=== PATIENT | male | born 1945 | race Caucasian/White ===

== ENCOUNTER 2016-03-28 10:21 | Emergency (ER) | payer MEDICARE, BC ==
[2016-03-28 12:49] VITALS: BP 111/58
--- NOTE | 2016-03-28 12:51 | UC ---
Respiratory Complaint HPI - HPI Summary HPI Summary: productive cough for 4d, greyish phlegm. No fever. No vomiting or diarrhea. Mild malaise and body aches. No ST or earache. No sinus congestion. Diabetic. Ill contacts, stomach flu. - History of Current Complaint Chief Complaint: UCRespiratory Stated Complaint: COUGH/CARDONA Time Seen by Provider: 03/28/16 11:49 Hx Obtained From: Patient Onset/Duration: Gradual Onset, Lasting Days - 4 Timing: Constant Severity Initially: Mild Severity Currently: Mild Character: Sputum Description: - gama, scant Aggravating Factors: Exertion Alleviating Factors: Nothing Associated Signs And Symptoms: Positive: URI, Hoarseness. Negative: Wheezing - Risk Factors Pulmonary Embolism Risk Factors: Negative Cardiac Risk Factors: Diabetes Pseudomonas Risk Factors: Negative Tuberculosis Risk Factors: Diabetes - Allergies/Home Medications Allergies/Adverse Reactions: Allergies Allergy/AdvReac Type Severity Reaction Status Date / Time Nabumetone [From Relafen] Allergy Swelling Verified 03/28/16 12:24 Of Face,Lips,& Throat Home Medications: Home Medications Insulin GLARGINE(*) [Lantus(*)] 30 units SUBCUT BID 03/28/16 [History Confirmed 03/28/16] Primidone TAB(*) [Mysoline TAB(*)] 150 mg PO BEDTIME 03/28/16 [History Confirmed 03/28/16] Travoprost Z 0.004% OPHTH (NF) [Travatan Z 0.004% OPTH (NF)] 1 drop BOTH EYES BEDTIME 03/28/16 [History Confirmed 03/28/16] PMH/Surg Hx/FS Hx/Imm Hx Endocrine History Of: Reports: Diabetes - type 2, Thyroid Disease - hypo Cardiovascular History Of: Reports: Cardiac Disorders - a fib, a flutter resolved by ablatiion, Hypertension GI/ History Of: Reports: Ulcer - gastric - Surgical History Surgical History: Yes Surgery Procedure, Year, and Place: cardiac ablations x 2 about 2 yrs ago - Family History Known Family History: Positive: Hypertension - Social History Occupation: Retired Lives: With Family Alcohol Use: Rare Substance Use Type: None Smoking Status (MU): Never Smoked Tobacco - Immunization History Most Recent Influenza Vaccination: 2016 Review of Systems Constitutional: Fatigue Skin: Negative Eyes: Negative ENT: Sore Throat - mild Respiratory: Cough Cardiovascular: Negative Gastrointestinal: Negative Genitourinary: Negative Motor: Negative Neurovascular: Negative Musculoskeletal: Negative Neurological: Negative Psychological: Negative All Other Systems Reviewed And Are Negative: Yes Physical Exam Triage Information Reviewed: Yes Appearance: Well-Appearing, No Pain Distress, Well-Nourished Vital Signs: Initial Vital Signs Temp 98.6 F 03/28/16 12:29 Pulse 58 03/28/16 12:29 Resp 20 03/28/16 12:29 BP 111/58 03/28/16 12:29 Pulse Ox 97 03/28/16 12:29 Vital Signs Reviewed: Yes Eye Exam: Normal ENT: Positive: Hearing grossly normal, Pharynx normal, TMs normal, Muffled/ hoarse voice - hoarse Neck exam: Normal Neck: Positive: Supple Respiratory Exam: Normal Respiratory: Positive: Lungs clear, Normal breath sounds, No respiratory distress, No accessory muscle use - harsh, phlegmy cough Cardiovascular Exam: Normal Musculoskeletal Exam: Normal Neurological Exam: Normal Psychological Exam: Normal Skin Exam: Normal UC Diagnostic Evaluation - Laboratory O2 Sat by Pulse Oximetry: 97 Respiratory Course/Dx - Differential Dx/Diagnosis Differential Diagnosis/HQI/PQRI: Bronchitis, Lower Resp Infection Provider Diagnoses: URI Discharge - Discharge Plan Condition: Stable Disposition: HOME Prescriptions: Azithromycin TAB* [Zithromax TAB (Z-HEATHER) 250 mg #6 tabs] 2 tab PO .TODAY, THEN 1 DAILY #1 heather Guaifenesin-Codeine [Cheratussin AC] 1 - 2 teasp PO Q6HR PRN #120 ml MDD 30ml PRN Reason: Cough Patient Education Materials: Upper Respiratory Infection (ED) Referrals: Mitch Prince MD [Primary Care Provider] - Additional Instructions: If your symptoms are worsening, particularly if you run a fever over 100.5 and have a worsening cough, then fill the antibiotic. Otherwise, treat as needed with cough suppressant and over the counter cold medications
== END 2016-03-28 12:52 | disposition home or self-care (01) ==
LOC: UCCORT 10:21
DX: J06.9 Acute upper respiratory infection, unspecified (principal); E11.9 Type 2 diabetes mellitus without complications; Z79.4 Long term (current) use of insulin; I48.91 Unspecified atrial fibrillation
CPT/HCPCS: 99212; G0463

== ENCOUNTER 2019-03-07 07:04 | Day surgery (SDC) | payer MEDICARE, BC ==
[~2019-03-07 07:04] MED LIST: Buffered Lidocaine 1% SYRIN* 1 ML/SYRINGE INTRADERM ONE
[2019-03-07] MEDS ORDERED: fentaNYL* 50 MCG/ML 2 ML VIAL (100 MCG VIAL) ONE (08:15)
[2019-03-07] MEDS ORDERED: Midazolam* 1 MG/ML 2 ML VIAL (2 MG) ONE (08:15)
[2019-03-07] MEDS ORDERED: Insulin LISPRO* 1 UNITS UNIT SUBCUT ONE (08:19)
[2019-03-07] MEDS ORDERED: Neomycin/Polymy/Dex OPTH.SUSP* MAXITROL 0.1% 5 ML ONE (08:53)
[2019-03-07] MEDS ORDERED: Ketorolac 0.5% OPHTH (NF) 0.5 % 5 ML BTL ONE (08:53)
[2019-03-07] MEDS ORDERED: Povidone Iodine 5% OPTH* 30 ML BTL ONE (08:53)
[2019-03-07] MEDS ORDERED: Phenylephrine OPHTH SOL 2.5%* 2 ML ONE (08:53)
[2019-03-07] MEDS ORDERED: Lidocaine 2% w/ EPI 1:200,000* 20 ML SDV VIAL ONE (08:53)
[2019-03-07] MEDS ORDERED: acetaZOLAMIDE TAB* 250 MG ONE (08:53)
[2019-03-07] MEDS ORDERED: Proparacaine 0.5% OPHTH.SOL* 15 ML BTL ONE (08:53)
[2019-03-07] MEDS ORDERED: Cyclopentolate 1% OPTH.SOL* 2 ML BTL ONE (08:53)
[2019-03-07] MEDS ORDERED: Lidocaine 1% MPF ** 5 ML VIAL ONE (08:53)
[2019-03-07 09:49] VITALS: BP 102/72
--- NOTE | 2019-03-07 11:55 | OP ---
OPERATIVE NOTE: DATE OF OPERATION: 03/07/19 DATE OF : [birth year] SURGEON: Clem Nunez MD PREOPERATIVE DIAGNOSES: Cataract and glaucoma, left eye. POSTOPERATIVE DIAGNOSIS: Cataract and glaucoma, left eye. OPERATIVE PROCEDURE: Extracapsular cataract extraction with intraocular lens implant and iStent, lef t eye. DESCRIPTION OF PROCEDURE: The patient was brought to the operating room after being given 1/2% Alcai ne with epinephrine drops in the preoperative area. The eye was prepped and draped in the usual ster ile fashion. Sterile drape and eyelid speculum were placed. Again, topical 1/2% Alcaine with epinep hrine was given. A paracentesis incision was made at the 3 o'clock position with the No.75 blade. Cl ear cornea incision 2.2 x 2.2-mm was created at the 6 o'clock position starting at the anterior limbu s using the 2.2-mm keratome. The anterior chamber was irrigated with 0.4 mL of 1% non-preservative i ntracameral lidocaine and filled with DisCoVisc. A capsulorrhexis was completed using the cystotome and the Utrata forceps. Hydrodissection was performed with balanced salt solution. The lens nucleus was removed with the Phacoemulsification handpiece without incident. Cortex was removed with the irr igation-aspiration handpiece. The capsular bag was re-inflated using DisCoVisc and an [id number] 20 impl ant was inserted with the shooter followed by an iStent inject inserted with the shooter at the 8 o'c lock and 10 o'clock position. The irrigation-aspiration handpiece was used to remove all residual Di sCoVisc. The eye was refilled with balanced salt solution and the wound checked and found to be wate rtight. Topical Maxitrol drops were given. [id number]/[facility] #: [id number]
[2019-03-08] MEDS ORDERED: Acetaminophen TAB* 325 MG PO PRN (05:00)
== END 2019-03-07 09:47 | disposition home or self-care (01) ==
LOC: OREAST 07:04
PROVIDERS: ATTEND Specialist
DX: H25.812 Combined forms of age-related cataract, left eye (principal); H40.1121 Primary open-angle glaucoma, left eye, mild stage; E11.9 Type 2 diabetes mellitus without complications; Z79.4 Long term (current) use of insulin; Z79.84 Long term (current) use of oral hypoglycemic drugs; I48.91 Unspecified atrial fibrillation; Z79.01 Long term (current) use of anticoagulants; I10 Essential (primary) hypertension; E03.9 Hypothyroidism, unspecified; M19.90 Unspecified osteoarthritis, unspecified site; Z68.33 Body mass index [BMI] 33.0-33.9, adult
CPT/HCPCS: A9270-GY; C1783; J1815; J2250; J3010; V2632

== ENCOUNTER 2019-03-14 06:42 | Day surgery (SDC) | payer MEDICARE, BC ==
[~2019-03-14 06:42] MED LIST changes: +Acetaminophen TAB* 325 MG PO PRN
[2019-03-14] MEDS ORDERED: Midazolam* 1 MG/ML 2 ML VIAL (2 MG) ONE ×2 (07:44→07:59)
[2019-03-14 08:39] VITALS: BP 112/78
--- NOTE | 2019-03-14 10:03 | OP ---
DATE OF OPERATION: 03/14/2019. DATE OF : 1945. SURGEON: Clem Nunez M.D. PREOPERATIVE DIAGNOSIS: Cataract right eye and glaucoma. POSTOPERATIVE DIAGNOSIS: Cataract right eye and glaucoma. OPERATIVE PROCEDURE: Extracapsular cataract extraction with intraocular lens implant right eye. PROCEDURE: The patient was brought to the operating room after being given 1/2% Alcaine with epineph rine drops in the preoperative area. The eye was prepped and draped in the usual sterile fashion. S terile drape and eyelid speculum were placed. Again, topical 1/2% Alcaine with epinephrine was given . A paracentesis incision was made at the 9 o'clock position with the No.75 blade. Clear cornea inc ision 2.2 x 2.2-mm was created at the 12 o'clock position starting at the anterior limbus using the 2 .2-mm keratome. The anterior chamber was irrigated with 0.4 mL of 1% non-preservative intracameral l idocaine and filled with DisCoVisc. A capsulorrhexis was completed using the cystotome and the Utrat a forceps. Hydrodissection was performed with balanced salt solution. The lens nucleus was removed w ith the Phacoemulsification handpiece without incident. Cortex was removed with the irrigation-aspir ation handpiece. The capsular bag was re-inflated using DisCoVisc and an SN60WF 19.5 implant was ins erted with the shooter, followed by an iStent inject through the shooter at the 2 o'clock and 4 o'horace ck position. The irrigation-aspiration handpiece was used to remove all residual DisCoVisc. The eye was refilled with balanced salt solution and the wound checked and found to be watertight. Topical M axitrol drops were given. [id number]/[facility] #: [id number]
[2019-03-14] MEDS ORDERED: Proparacaine 0.5% OPHTH.SOL* 15 ML BTL ONE (15:04)
[2019-03-14] MEDS ORDERED: acetaZOLAMIDE TAB* 250 MG ONE (15:04)
[2019-03-14] MEDS ORDERED: Povidone Iodine 5% OPTH* 30 ML BTL ONE (15:04)
[2019-03-14] MEDS ORDERED: Lidocaine 2% w/ EPI 1:200,000* 20 ML SDV VIAL ONE (15:04)
[2019-03-14] MEDS ORDERED: Cyclopentolate 1% OPTH.SOL* 2 ML BTL ONE (15:04)
[2019-03-14] MEDS ORDERED: Lidocaine 1% MPF ** 5 ML VIAL ONE (15:04)
[2019-03-14] MEDS ORDERED: Phenylephrine OPHTH SOL 2.5%* 2 ML ONE (15:04)
[2019-03-14] MEDS ORDERED: Ketorolac 0.5% OPHTH (NF) 0.5 % 5 ML BTL ONE (15:04)
[2019-03-14] MEDS ORDERED: Neomycin/Polymy/Dex OPTH.SUSP* MAXITROL 0.1% 5 ML ONE (15:04)
== END 2019-03-14 08:37 | disposition home or self-care (01) ==
LOC: OREAST 06:42
PROVIDERS: ATTEND Specialist
DX: H25.811 Combined forms of age-related cataract, right eye (principal); H40.1112 Primary open-angle glaucoma, right eye, moderate stage; E11.9 Type 2 diabetes mellitus without complications; Z79.84 Long term (current) use of oral hypoglycemic drugs; Z79.4 Long term (current) use of insulin; I48.91 Unspecified atrial fibrillation; E03.9 Hypothyroidism, unspecified; E78.00 Pure hypercholesterolemia, unspecified
CPT/HCPCS: A9270-GY; C1783; J2250; V2632